=== PATIENT | female | born 1970 | race Caucasian/White ===

== ENCOUNTER 2019-12-05 13:24 | Inpatient (IN) | payer MEDICAID ==
[~2019-12-05] VITALS: Ht 172.7 cm; Wt 56.6 kg
[2019-12-05] VITALS (14 sets, daily range): BP systolic 112–158; BP diastolic 68–85; BMI 18.5
--- NOTE | ~2019-12-05 | OP ---
PATIENT NAME: JEROME REHMAN MEDICAL RECORD: [id number] :70 LOCATION:D.[facility] D.[id number] ADMISSION DATE:12/05/19 SURGEON: ISIDORO RAMOS MD DATE OF OPERATION: 12/06/2019 PREOPERATIVE DIAGNOSIS: Small-bowel obstruction. POSTOPERATIVE DIAGNOSES: 1. Small-bowel obstruction with extensive adhesions in the lower abdomen and pelvis. 2. Appendix that extended inferiorly and was encased in a ball of ovary and fallopian tube. 3. Incarcerated incisional hernia. PROCEDURE: 1. Exploratory laparoscopy with conversion to exploratory laparotomy. 2. Decompression of small bowel. 3. Sharp adhesiolysis (35 minutes). 4. Appendectomy. SURGEON: Isidoro Ramos MD PROCESS ARCHITECT: None. BLOOD LOSS: 100 cc. ANESTHESIA: General. COMPLICATIONS: None. The risks, possible complications, and alternatives to the procedure were explained to the patient. She elects to proceed. Prior to the procedure, the anesthesia staff had placed a central venous line. OPERATIVE COURSE: The patient was conveyed to the operating room electively on 12/06/2019. General anesthesia was induced by the anesthesia staff. The abdomen was sterilely prepped and draped. An incision was accomplished in the left upper quadrant. A Veress needle was inserted through the incision into the peritoneal cavity. A 5-mm trocar was inserted through this incision. Under direct internal vision utilizing television camera, two more trocars were inserted, one in the left groin, one in the left lower quadrant. During insertion of the Veress needle and all trocars, there appeared to have been no injury to the bowels, any intraperitoneal or retroperitoneal structures. There were dense adhesions in the pelvis. I began to take some of these adhesions down and converted to a laparotomy. The laparoscopy did allow me to determine where the problematic area was and it was in the pelvis; therefore, I went through the patient's existing Pfannenstiel incision. An incision was made through the scar. I dissected down through Lyle fascia. The anterior fascia was incised transversely. Subfascial flaps were created in cephalad and caudad direction. I noted that there was a central hernia. The hernia was due to the fact that the rectus muscles either had not been approximated or had with time. This produced a hernia through the muscle, but not through the fascia. There was a good bit of scar tissue within this hernia and in fact I OPERATIVE REPORT [id number] JEROME REHMAN found two tight adhesive bands and both of them were within this hernia defect, which was corrected later in the operation. I exteriorized as much of the bowel as I could. An adhesiolysis was undertaken. This was a sharp adhesiolysis. Most of the adhesions were grade II and grade III adhesions. I mobilized the cecum. The appendix was lengthy and traveled down into the pelvis and I felt a nodular mass on the right side of the pelvis and was able to mobilize this, the tip of the appendix, which was encased with the right fallopian tube and right ovary. This was an indication to remove this appendix. A window was created in the mesoappendix. I stapled across the tip of the cecum with a ROMAN 60 stapler. I then took down the mesoappendix with the Super Jaw EnSeal device. I exteriorized all the small bowel. The small bowel was decompressed through an enterotomy. I then closed the enterotomy with a single firing of the TA 60 stapler. I then imbricated the staple line with 3-0 Vicryl sutures. After the adhesiolysis, there was a thin area in the sigmoid colon, but this was not a full thickness injury. I elected to reinforce this with a firing of TA 60 stapler, which I did tangentially. I tried to create a tongue of omentum that could stick down over the small bowel. I began to take down the omentum starting on right at the transverse colon. She had a very thin omentum, creating a tongue of this proved to be pretty fruitless. I then excised some of the tongue and I had mobilized as it was very thin. I did all of this with the Super Jaw EnSeal device. I irrigated with normal saline and aspirated. Two 19-Lao drains were placed, one through the trocar site in the left upper quadrant, one through the trocar site in the left lower quadrant. The groin trocar site had been utilized in the opening of the Pfannenstiel incision. The drains were sutured to skin with nylon sutures. One drain was placed cephalad under the diaphragm. The other was placed down in the pelvis. I irrigated and aspirated. There was no bleeding. I ran the small bowel 3 times. No evidence of full thickness bowel injury. I ensured that the small bowel was not twisted on its mesentery. I laid this much of the omentum over the small bowel as I could. It was necessary to decompress the small bowel earlier in the operation in order to return it to the peritoneal cavity. In the lower midline, the peritoneum and rectus muscles were approximated with running #1 Vicryl. I reinforced this with a few #1 Vicryls in horizontal mattress fashion. This closed the hernia defect. The anterior fascia was closed with running looped #1 PDS from the right and the left. Lyle fascia was approximated with interrupted 3-0 Vicryls. The subdermis was approximated with interrupted 3-0 Vicryl. The skin was approximated with a running intracuticular 3-0 Vicryl. At the 2 drain sites, skin was closed around, the drain this with interrupted intracuticular 3-0 Vicryls. Benzoin and Steri-Strips were applied. The patient was then extubated and conveyed to the intensive care unit. TRANSINT:[id number] Voice Confirmation ID: [id number] DOCUMENT ID: [id number] 12/08/2019 Edited for jumpbasting armhole baster error, dmm. OPERATIVE REPORT [id number] JEROME REHMAN ROBERT MD CC: RACHEL BAXTER MD [id number] DICTATION DATE: 12/07/19 152 SENIOR CATEGORY MANAGER: 12/07/192112 ADM IN [facility] [address] [place] [address]
[~2019-12-05 13:24] MED LIST: CHANTIX0.5 MG PO; HYDROCODONE-APA1 TAB PO; IBUPROFEN600 MG PO; IBUPROFEN800 MG PO; PERCOCET 10/3251 TA1 PO; PERCOCET 5-3251 TAB PO
[2019-12-05 13:59] LABS: HEMATOCRIT 42.7 % (36.0-48.0); HEMOGLOBIN 14.7 g/dL (12-16); LYMPHOCYTES 9.5 % (15-50); MCH 30.1 pg (26.0-34.0); MCHC 34.4 g/dL (31.0-37.0); MCV 87.5 fL (80.0-100.0); MEAN PLATELET VOLUME 8.6 fL (7.4-10.4); NEUTROPHILS 88.3 % (40-80); RBC 4.88 10x6/uL (4.00-5.40); RDW 14.2 % (11.5-14.5); WBC 11.6 10x3/uL (4.8-10.8)
[2019-12-05 14:13] LABS: PLATELET COUNT 449 10x3/uL (130-400)
--- NOTE | 2019-12-05 14:15 | NUR ---
PT AMBULATORY TO BATHROOM TO SUBMIT URINE SAMPLE
--- NOTE | 2019-12-05 14:20 | NUR ---
PT MEDICATED PER MD ORDER: TORADOL 30MG IVP AND ZOFRAN 8MG IVP. URINE SAMPLE COLLECTED AND SENT TO LAB VIA TUBE SYSTEM.
[2019-12-05 14:45] LABS: BILIRUBIN NEGATIVE (NEGATIVE); GLUCOSE NEGATIVE (NEGATIVE); KETONE MODERATE mg/dL (NEGATIVE); NITRITE NEGATIVE (NEGATIVE); SPECIFIC GRAVITY 1.015 (1.005-1.020); UROBILINOGEN NORMAL (NORMAL)
--- NOTE | 2019-12-05 14:46 | NUR ---
PT REPORT IMPROVEMENT IN ABD PAIN AND NAUSEA. RESTING IN POSITION OF COMFORT AT THIS TIME. CALL LIGHT IN REACH. FAMILY MEMBER AT BEDSIDE. WILL CONTINUE TO MONITOR.
--- NOTE | 2019-12-05 15:18 | NUR ---
PT RESTING IN POSITION OF COMFORT, DENIES NEEDS AT THIS TIME. WILL CONTINUE TO MONITOR.
[2019-12-05 15:35] LABS: CALC OSMOLALITY 273 mosm/kg (275-300); CALCIUM 9.1 mg/dL (8.5-10.1); CARBON DIOXIDE 26.8 mmol/L (21.0-32.0); CHLORIDE - SERUM 103 mmol/L (98-107); CREATININE - SERUM 0.7 mg/dL (0.6-1.3); GLUCOSE 115 mg/dL (74-106); POTASSIUM - SERUM 3.6 mmol/L (3.5-5.1); SODIUM 136 mmol/L (136-145); UREA NITROGEN 14 mg/dL (7-18); eGFR NON AFRICAN AMERICAN > 90 mL/min (90-120)
[2019-12-05 15:44] LABS: ALBUMIN 3.9 g/dL (3.4-5.0); ALKALINE PHOSPHATASE 76 U/L (30-120); ALT (SGPT) 31 U/L (10-68); AMYLASE - SERUM 201 U/L (25-115); BILIRUBIN - TOTAL 0.43 mg/dL (0.2-1.3); LIPASE 66 U/L (73-393); PROTEIN - SERUM 7.8 g/dL (6.4-8.2)
[2019-12-05 15:47] LABS: TROPONIN-I < 0.017 ng/mL (0.000-0.060)
--- NOTE | 2019-12-05 16:10 | NUR ---
PT RESTING IN POSITION OF COMFORT, DENIES NEEDS AT THIS TIME. FAMILY AT BEDSIDE.
--- NOTE | 2019-12-05 16:55 | NUR ---
NG TUBE PLACED AT THIS TIME TO LEFT NARE. PT TOLERATED WELL.
--- NOTE | 2019-12-05 17:30 | NUR ---
AT BEDSIDE. VERBAL ORDER RECEIVED TO ADVANCE NG TUBE APPROX 6 INCHES.
--- NOTE | 2019-12-05 17:40 | NUR ---
NG TUBE ADVANCED PER MD ORDER. POST NG XRAY ORDERED.
--- NOTE | 2019-12-05 18:02 | NUR ---
REPORT TO JENNIFER PRO
--- NOTE | 2019-12-05 19:08 | NUR ---
PT MEDICATED PER MD ORDER: ATIVAN 1MG IVP
--- NOTE | 2019-12-05 19:45 | NUR ---
RECEIVED TO FLOOR, ACCOMPANIED BY ER STAFF. A&O X 4. AMBULATES INDEPENDENTLY. DENIES PAIN. DENIES NAUSEA AT THIS TIME. REPORTS SHE WAS HOOKED TO WALL SUCTION VIA NGT WHILE IN ER. ER CALLED FOR VERIFICATION. CTM.
[2019-12-05 23:10] LABS: INR 0.85 (0.85-1.17); PROTIME 11.6 SECONDS (11.6-15.0)
[2019-12-05 23:11] LABS: APTT 27.4 SECONDS (22.8-39.4)
[2019-12-06] VITALS (14 sets, daily range): BP systolic 93–167; BP diastolic 58–84; Ht 172.7 cm; Wt 56.6 kg
--- NOTE | 2019-12-06 06:00 | NUR ---
UP TO RESTROOM. AMBULATES INDEPENDENTLY. N/V EPISODE, 100ML CLEAR/GREENISH EMESIS. PAIN 03/06.
[2019-12-06 08:28] LABS: HEMATOCRIT 41.4 % (36.0-48.0); HEMOGLOBIN 14.2 g/dL (12-16); LYMPHOCYTES 10.6 % (15-50); MCH 30.3 pg (26.0-34.0); MCHC 34.3 g/dL (31.0-37.0); MCV 88.3 fL (80.0-100.0); MEAN PLATELET VOLUME 9.1 fL (7.4-10.4); NEUTROPHILS 85.2 % (40-80); PLATELET COUNT 432 10x3/uL (130-400); RBC 4.69 10x6/uL (4.00-5.40); RDW 14.4 % (11.5-14.5); WBC 11.8 10x3/uL (4.8-10.8)
[2019-12-06 08:44] LABS: ALBUMIN 3.4 g/dL (3.4-5.0); ALKALINE PHOSPHATASE 67 U/L (30-120); BILIRUBIN - TOTAL 0.38 mg/dL (0.2-1.3); CALC OSMOLALITY 281 mosm/kg (275-300); CALCIUM 8.9 mg/dL (8.5-10.1); CARBON DIOXIDE 23.8 mmol/L (21.0-32.0); CHLORIDE - SERUM 108 mmol/L (98-107); CREATININE - SERUM 0.6 mg/dL (0.6-1.3); GLUCOSE 104 mg/dL (74-106); LIPASE 66 U/L (73-393); MAGNESIUM - SERUM 2.1 mg/dL (1.8-2.4); POTASSIUM - SERUM 3.8 mmol/L (3.5-5.1); PROTEIN - SERUM 7.5 g/dL (6.4-8.2); SODIUM 141 mmol/L (136-145); UREA NITROGEN 14 mg/dL (7-18); eGFR NON AFRICAN AMERICAN > 90 mL/min (90-120)
[2019-12-06 08:45] LABS: ALT (SGPT) 23 U/L (10-68); AMYLASE - SERUM 146 U/L (25-115)
--- NOTE | 2019-12-06 11:28 | NUR ---
PT ALERT X 4. NG TUBE SET TO LIWS. BREATH SOUNDS CLEAR BILAT. IV TO RIGHT FOREARM, PATENT, DRESSING CDI. PT REPORTING PAIN OF 8/10. EKG AND HIBICLENSE DONE. BED LOW, CALL LIGHT IN REACH. NO OTHER NEEDS AT THIS TIME.
--- NOTE | 2019-12-06 11:30 | NUR ---
1120 PATIENT BROUGHT OVER TO PACU DR CASTLE PLACED CVL, TWORLEY.
--- NOTE | 2019-12-06 11:59 | NUR ---
CVL PLACED BY DR CASTLE, THEN PATIENT TO HAVE EXPLORATORY LAPAROTOMY BY DR RAMOS, PATIENT HELD IN PACU AND MONITORED AFTER CVL PLACEMENT TILL SURGERY, ALLEN.
--- NOTE | 2019-12-06 13:17 | NUR ---
PATIENT IN PACU HOLDING AREA, AWAITING SURGERY B/P 161/67 O2 AT 97% ON ROOM AIR AND HEART RATE 86, TWORLEY.
--- NOTE | 2019-12-06 17:40 | NUR ---
ARRIVED TO UNIT AT THIS TIME FROM OR WITH PACU NURSE AT BEDSIDE. PT CONFUSED AT THIS TIME. REORIENTATION PROVIDED. NGT TO LOW INT SUCTIONING. INCISION TO PTS PREVIOUS SITE WITH JOSE DRAINS X 2. HUERTA. VSS. PACU NURSE AT BEDSIDE RECOVERING PT. WILL CONTINUE PLAN OF CARE.
--- NOTE | 2019-12-06 18:24 | NUR ---
PACU NURSE HAS GIVEN BEDSIDE REPORT TO THIS NURSE. UPDATES PROVIDED. PT SLIGHTLY DROWSY, AWAKENS EASILY. STILL CONFUSED TO SITUATION AND LOCATION. REORIENTATION PROVIDED. VSS. WILL CONTINUE PLAN OF CARE.
--- NOTE | 2019-12-06 18:41 | NUR ---
PER DR RAMOS, WATCH PTS URINE OUTPUT FOR 30ML URINE OUTPUT/HR.
--- NOTE | 2019-12-06 19:11 | NUR ---
BEDSIDE SHIFT REPORT COMPLETED, SHIFT ASSESSMENT COMPLETED AT THIS TIME. PT LETHARGIC ROUSES TO VOICE. EXPRESSING 10/10 ON PAIN SCALE, ABDOMEN, SHARP. PAIN MEDICATION ADMINISTERED PER ORDERS WITH 2 NURSE BEDSIDE VERIFICATION. PT EDUCATION PROVIDED AT THIS TIME REGARDING DIGITAL MARKETING COORDINATOR PAIN CONTROL DEVICE. JOSE X2 LEFT LOWER ABDOMEN. COMPRESSED, BLOODY DRAINAGE. DRESSING CDI. PATIENT AFEBRILE, LUNG SOUNDS CTA - BS HYPO X4 - VSS WILL CONTINUE TO CLOSELY MONITOR.
--- NOTE | 2019-12-06 19:22 | NUR ---
DAUGHTER CALLED IN TO REQUEST PATIENT STATUS UPDATE. PASSWORD RECEIVED FROM DAUGHTER. UPDATE GIVEN, ALL QUESTIONS ANSWERED CPOC
--- NOTE | 2019-12-06 23:02 | NUR ---
REASSESSMENT COMPLETED AT THIS TIME, TACHYCARDIA AND HYPOTENSION NOTED, UOP TRENDING >30 AT THIS TIME. AFEBRILE, PAIN MODERATELY CONTROLLED WITH PATIENT EXPRESSING 6-8 ON PAIN SCALE. JOSE OUTPUT AT A MINIMUM - WILL CONTINUE TO CLOSELY MONITOR
[2019-12-07] VITALS (23 sets, daily range): BP systolic 91–153; BP diastolic 55–94
--- NOTE | 2019-12-07 01:30 | NUR ---
PATIENT RESTING COMFORTABLY, NO ACUTE CHANGES AT THIS TIME. WILL CONTINUE TO MONITOR
--- NOTE | 2019-12-07 03:32 | NUR ---
REASSESSMENT COMPLETED, SCANT AMOUNT OF BLOOD NOTED ON JOSE #1 DRESSING, BULBS COMPRESSED, MINIMAL OUTPUT. UOP COLLECTED AND CHARTED, PATIENT REPOSITIONED FOR COMFORT. PT ASKED WHEN SHE WOULD HAVE SURGERY. I INFORMED HER SHE ALREADY HAD SURGERY. PT STATED SHE HAD NO RECOLLECTION OF SURGERY AND ASKED IF EVERYTHING WAS OK AND IF SHE HAD ANY CALLS. UPDATE PATIENT AND ANSWERED ALL QUESTIONS. PT ORIENTED X4 PT STATES HER PAIN LEVEL IS DOWN TO 5 ON A 1-10 PAIN SCALE. LABS COLLECTED FROM CENTRAL LINE PER PROTOCOL AND DELIVERED TO LAB. PT REMAINS AFEBRILE, WITH SINUS TACHYCARDIA. WILL CONTINUE TO CLOSELY MONITOR SEE FLOWSHEET FOR FULL ASSESSMENT
[2019-12-07 03:40] LABS: BASOPHILS 0.2 % (0-2); EOSINOPHILS 0 % (0-7); HEMATOCRIT 36.2 % (36.0-48.0); HEMOGLOBIN 12.1 g/dL (12-16); IMMATURE GRANULOCYTES 0.3 % (0-5); LYMPHOCYTES 7.3 % (15-50); MCH 30.4 pg (26.0-34.0); MCHC 33.4 g/dL (31.0-37.0); MEAN PLATELET VOLUME 8.8 fL (7.4-10.4); MONOCYTES 6.2 % (2-11); RBC 3.98 10x6/uL (4.00-5.40); RDW 14.2 % (11.5-14.5)
[2019-12-07 03:44] LABS: PLATELET COUNT 324 10x3/uL (130-400)
[2019-12-07 03:52] LABS: ANION GAP 10.7 mmol/L (8-16); BILIRUBIN - TOTAL 0.62 mg/dL (0.2-1.3); CALCIUM 7.5 mg/dL (8.5-10.1); CARBON DIOXIDE 23.2 mmol/L (21.0-32.0); MAGNESIUM - SERUM 1.7 mg/dL (1.8-2.4); POTASSIUM - SERUM 3.9 mmol/L (3.5-5.1)
[2019-12-07 03:53] LABS: ALBUMIN 2.1 g/dL (3.4-5.0); CREATININE - SERUM 0.9 mg/dL (0.6-1.3); PROTEIN - SERUM 5.2 g/dL (6.4-8.2)
--- NOTE | 2019-12-07 07:49 | NUR ---
LYING IN BED RESTING AT THIS TIME. VSS. PT DENIES ANY CURRENT NEEDS. STATES PAIN IS MUCH MORE WELL MANAGED THAN LAST NIGHT. SHE STATES SHE WISHES TO SLEEP. CALL LIGHT IN REACH. NOTED JOSE DRAIN #1 HAVING SCANT DRAINAGE AROUND JOSE INSERTION SITE, DRESSINGS CHANGED AROUND SITE. VSS. CALL LIGHT AND PERSONAL ITEMS IN REACH. WILL CONTINUE PLAN OF CARE.
--- NOTE | 2019-12-07 09:18 | NUR ---
PER DR MCNEILL, IF OKAY WITH DR RICHARD MCGUIRE TO TRANSFER TO FLOOR.
--- NOTE | 2019-12-07 10:08 | NUR ---
NO ACUTE DISTRESS NOTED. NO CHANGE. VSS. WILL CONTINUE PLAN OF CARE.
--- NOTE | 2019-12-07 12:06 | NUR ---
VSS. NO ACUTE DISTRESS NOTED. CALL LIGHT AND PERSONAL ITEMS IN REACH. WILL CONTINUE PLAN OF CARE.
--- NOTE | 2019-12-07 14:25 | NUR ---
PER DR RAMOS, OKAY FOR PT TO WALK AND SIT UP IN CHAIR TOLERATES.
--- NOTE | 2019-12-07 15:04 | NUR ---
JOSE 1 AND 2 DRAINED, SEE I&O FLOWSHEET.
--- NOTE | 2019-12-07 16:10 | NUR ---
PT NOTED CONFUSED, PULLED OUT NGT AND CVL DRESSING AND MONITORING EQUIPMENT. PT WAS THEN ATTEMPTING TO PULL OUT CVL. REORIENTATION ATTEMPTED TO BE PROVIDED, UNSUCCESSFUL. PT STATED "IT WAS SUPPOSED TO COME OUT, I WANT TO PLAY PLEASE LET ME PLAY, I CAN SHOW YOU THAT I CAN PLAY." BILATERAL SOFT WRIST RESTRAINTS PLACED. NGT 16F PLACED, PLACEMENT VERIFIED VIA AUSCULTATION AND ASPIRATION. CVL DRESSING PLACED. VSS. WILL CONTINUE PLAN OF CARE. WILL PAGE DR RAMOS OF THIS.
--- NOTE | 2019-12-07 16:29 | NUR ---
\DR RAMOS UPDATED ON PT CONFUSION INCLUDING INCREASED HEART RATE TO 140S SINUS. ORDER RECIEVED FOR ONE TIME DOSE LOPRESOR. GIRISH ADMIN.
--- NOTE | 2019-12-07 18:08 | NUR ---
PT NOTED STILL CONFUSED STATING "I SLICED OPEN THE CAN, HELP ME OPEN IT, YOU DON'T BELIEVE ME?" REORIENTATION PROVIDED. NO ACUTE DISTRESS NOTED. WILL CONTINUE PLAN OF CARE.
--- NOTE | 2019-12-07 19:04 | NUR ---
BEDSIDE SHIFT REPORT RECEIVED. PT LYING IN BED, BILAT WRIST RESTRAINTS NOTED AT THIS TIME. TACHYCARDIA NOTED, RADIOISOTOPE TECHNICIAN OFF AT THIS TIME DUE TO MENTAL STATUS REPORTED BY OFF GOING NURSE. VSS WILL CONTINUE TO MONITOR
--- NOTE | 2019-12-07 19:45 | NUR ---
PT IS AWAKE ALERT AND ORIENTED, SHE REMEMBERS THIS NURSE FROM PREVIOUS SHIFT, SHE CAN RECALL CONVERSATIONS WE HAVE HAD SHE UNDERSTANDS HER SITUATION, SHE IS HAVING SOME ANXIETY. BILAT WRIST RESTRAINTS DCD AT THIS TIME. PT UNDERSTANDS THE NECESSITY FOR MEDICAL EQUIPMENT.
--- NOTE | 2019-12-07 21:00 | NUR ---
PT FOUND TEARFUL AND AFRAID, SHE HAS PULLED THE NG TUBE OUT. SHE IS ON THE PHONE WITH HER DAUGHTER STATING THAT WE HAVE KIDNAPPED HER AND TIED HER DOWN. PATIENT IS UNRESTRAINED AT THIS TIME. I HAVE SPOKEN WITH DAUGHTER ON THE PHONE PRIOR TO THIS MOMENT AND ALREADY EXPLAINED THE NEED FOR MEDICAL RESTRAINTS FOR SAFETY EARLIER IN THE DAY. REORIENTED PATIENT TO TIME AND SITUATION, INSTUCTED THROUGH DEEP BREATHING EXERCISES. REORIENTATION SUCCESSFUL, EXPLAINED THE NEED FOR MEDICAL RESTRAINTS TO PROTECT PATIENT AND MEDICAL EQUIPMENT. SHE STATED SHE WOULD IF WE TIED HER DOWN AGAIN. NG TUBE RE INSERTED AIR BOLUS AUDIBLE LUQ - XRAY CHECKED FOR CONFIRMATION. CONNECTED TO LIS. SPOKE WITH DR RAMOS AT BEDSIDE. NEW ORDERS RECEIVED - NO RESTRAINTS ON THE PATIENT AT THIS TIME
--- NOTE | 2019-12-07 23:20 | NUR ---
REASSESSMENT COMPLETED. PT ANXIOUS AND FEARFUL. REORIENTED TO SITUATION. VSS WITH NOTED TACHYCARDIA, WILL CONTINUE TO MONITOR
[2019-12-08] VITALS (23 sets, daily range): BP systolic 119–159; BP diastolic 69–96
--- NOTE | 2019-12-08 | NUR ---
PT REQUESTED PRN MEDICATION, SEE JUL FOR ADMINISTRATION
--- NOTE | 2019-12-08 00:59 | NUR ---
PT REQUESTING PRN MEDICATION AT THIS TIME, WILL ADMINISTER ORDERED SEE MAR
[2019-12-08 04:50] LABS: HEMATOCRIT 40.2 % (36.0-48.0); HEMOGLOBIN 13.7 g/dL (12-16); MCH 30.2 pg (26.0-34.0); MCHC 34.1 g/dL (31.0-37.0); MEAN PLATELET VOLUME 8.7 fL (7.4-10.4); NEUTROPHILS 82.2 % (40-80); RBC 4.53 10x6/uL (4.00-5.40); RDW 14.5 % (11.5-14.5); WBC 9.1 10x3/uL (4.8-10.8)
[2019-12-08 04:58] LABS: MCV 88.7 fL (80.0-100.0); PLATELET COUNT 248 10x3/uL (130-400)
[2019-12-08 05:04] LABS: ALBUMIN 1.9 g/dL (3.4-5.0); ALKALINE PHOSPHATASE 53 U/L (30-120); ALT (SGPT) 13 U/L (10-68); BILIRUBIN - TOTAL 0.51 mg/dL (0.2-1.3); CALC OSMOLALITY 293 mosm/kg (275-300); CALCIUM 8.2 mg/dL (8.5-10.1); CARBON DIOXIDE 22.8 mmol/L (21.0-32.0); CHLORIDE - SERUM 115 mmol/L (98-107); CREATININE - SERUM 0.7 mg/dL (0.6-1.3); GLUCOSE 117 mg/dL (74-106); PROTEIN - SERUM 5.6 g/dL (6.4-8.2); SODIUM 147 mmol/L (136-145); UREA NITROGEN 15 mg/dL (7-18); eGFR NON AFRICAN AMERICAN > 90 mL/min (90-120)
[2019-12-08 05:05] LABS: AMYLASE - SERUM 52 U/L (25-115); LIPASE 29 U/L (73-393); MAGNESIUM - SERUM 2.3 mg/dL (1.8-2.4); POTASSIUM - SERUM 3.3 mmol/L (3.5-5.1)
--- NOTE | 2019-12-08 09:34 | NUR ---
Nutrition consult: Received consult fromdenise Espinal to start TPN. Chart reviewed Labs reviewed Ordered TPN @ 40 ml/hr RDN following.
--- NOTE | 2019-12-08 14:27 | NUR ---
0700 BEDSIDE REPORT RECEIVED ASSESSMENT COMPLETE NGT TUBE IN PLSCE TO LEFT NARE ABDOMIN TENDER TO TOUCH AND MOVEMENT INCISION SITES CDI
--- NOTE | 2019-12-08 14:31 | NUR ---
0900 RESTING QUIETLY WITH EYES CLOSED
--- NOTE | 2019-12-08 14:32 | NUR ---
0920 C/O PAIN 12/04 DILAUDID 1MG IV GIVEN
--- NOTE | 2019-12-08 14:33 | NUR ---
1100 RESTING QUIETLY AWAKENS WHEN DR MANE IS ROUNDING ANSWERS QUESTIONS
--- NOTE | 2019-12-08 14:34 | NUR ---
1400 C/O ABDOMINAL PAIN 02/04 DILALUDID 1MG IV GIVEN LEFT SUB CLAVIAN DSG CDI
--- NOTE | 2019-12-08 14:34 | NUR ---
1300 VISITOR AT BEDSIDE VOICES NO COMPLAINTS
--- NOTE | 2019-12-08 19:10 | NUR ---
BEDSIDE SHIFT REPORT COMPLETED
--- NOTE | 2019-12-08 19:38 | NUR ---
SHIFT ASSESSMENT COMPLETED, SOME BRIGHT RED BLOOD NOTED IN NG TUBE AT THIS TIME. FULL VAC ON AT THIS TIME, TURNED DOWN TO LOW INTERMITTENT SUCTION. PT EXPERIENCING SOME NAUSEA, ASSITED TO SIT UP IN BED. PLACEMENT CHECK ON NG TUBE. AIR BOLUS AUDIBLE LUQ. WILL CONTINUE TO CLOSELY MONITOR FOR BLOOD VSS PT STATES PAIN IS AT A MINIMUM STATING 5 OUT OF 10 ON 1-10 PAIN SCALE. SEE FLOWSHEET FOR FULL ASSESSMENT
--- NOTE | 2019-12-08 19:41 | NUR ---
CBS 142 AFTER STARTING TPN
--- NOTE | 2019-12-08 20:50 | NUR ---
PT REQUESTED PRN PAIN MEDICATION AT THIS TIME SEE MAR FOR ADMINISTRATION
--- NOTE | 2019-12-08 23:30 | NUR ---
REASSESSMENT COMPLETED SEE FLOWSHEET
[2019-12-09] VITALS (13 sets, daily range): BP systolic 125–157; BP diastolic 81–96
--- NOTE | 2019-12-09 01:43 | NUR ---
PT RESTING COMFORTABLY, NO ACUTE SIGNS OF DISTRESS, CPOC
--- NOTE | 2019-12-09 04:15 | NUR ---
PATIENT REQUESTING PRN PAIN MEDICATION AT THIS TIME. MAROON LIQUID NOTED IN NG CANISTER. PLACEMENT CHECK AIR BOLUS AUDIBLE AT THIS TIME. CHG BATH COMPLETED PATIENT ABLE TO ROLL SIDE TO SIDE. TOLERATED WELL WITH SOME FATIGUE. VSS CPOC
[2019-12-09 05:04] LABS: LYMPHOCYTES 17.5 % (15-50); MCH 30.2 pg (26.0-34.0); MCHC 33.8 g/dL (31.0-37.0); MCV 89.2 fL (80.0-100.0); MEAN PLATELET VOLUME 8.9 fL (7.4-10.4); NEUTROPHILS 72.3 % (40-80); RDW 13.9 % (11.5-14.5)
[2019-12-09 05:25] LABS: HEMOGLOBIN 9.8 g/dL (12-16); PLATELET COUNT 338 10x3/uL (130-400); RBC 3.25 10x6/uL (4.00-5.40); WBC 6.6 10x3/uL (4.8-10.8)
[2019-12-09 05:28] LABS: ALBUMIN 1.8 g/dL (3.4-5.0); ALKALINE PHOSPHATASE 53 U/L (30-120); ALT (SGPT) 14 U/L (10-68); BILIRUBIN - TOTAL 0.56 mg/dL (0.2-1.3); CALC OSMOLALITY 290 mosm/kg (275-300); CALCIUM 8.2 mg/dL (8.5-10.1); CHLORIDE - SERUM 115 mmol/L (98-107); CREATININE - SERUM 0.6 mg/dL (0.6-1.3); GLUCOSE 140 mg/dL (74-106); MAGNESIUM - SERUM 2.2 mg/dL (1.8-2.4); POTASSIUM - SERUM 3.1 mmol/L (3.5-5.1); PROTEIN - SERUM 5.9 g/dL (6.4-8.2); SODIUM 145 mmol/L (136-145); UREA NITROGEN 12 mg/dL (7-18); eGFR NON AFRICAN AMERICAN > 90 mL/min (90-120)
[2019-12-09 05:31] LABS: AMYLASE - SERUM 95 U/L (25-115); LIPASE 144 U/L (73-393)
[2019-12-09 05:32] LABS: PHOSPHOROUS 0.9 mg/dL (2.5-4.9)
--- NOTE | 2019-12-09 05:41 | NUR ---
PAGED SURGERY REGARDING NG TUBE CONCERNS, SERVICE NOTIFIED THIS NURSE THAT DR RAMOS IS BUSINESS MGR AND WILL BE NOTIFIED.
--- NOTE | 2019-12-09 06:17 | NUR ---
DR ARAIZA RETURNED PAGE AT THIS TIME, NO NEW ORDERS
--- NOTE | 2019-12-09 08:15 | NUR ---
Nutrition follow-up: Chart reviewed Labs: PO4 0.9, Cl 115, Na 145, K 3.1; PO4 to be replaced per electolyte protocol TPN electolytes adjusted TPN infusing @ 40 ml/hr RDN following.
--- NOTE | 2019-12-09 09:43 | NUR ---
0700 BEDSIDE REPORT RECCEIVED FROM OUTGOING RN SITTING IN BED AWAKE ABDOMIN TENDER TO TOUCH AND MOVEMENT ANSWERS QUESTIONS APPROPRIATELY
--- NOTE | 2019-12-09 14:42 | NUR ---
0800 RADIOLOGIST CALLED AND ASKED THAT WE ADVANCE NGT 5 CM CCASSIE DID THIS ORDERED REPEAT ABD XR. NGT WAS IN PLACE
--- NOTE | 2019-12-09 14:44 | NUR ---
1000 DR ARAIZA AT BEDSIDE ACCESSING NGT FUNCTION
--- NOTE | 2019-12-09 18:13 | NUR ---
1100 REMAINS NPO WITH NGT IN PLACE
--- NOTE | 2019-12-09 18:14 | NUR ---
1300 REMAINS UP IN RECLINER CHAIR OSMIN WELL
--- NOTE | 2019-12-09 18:15 | NUR ---
[address]ED BACK TO BED DR ARAIZA CAME BY AND WAS UPDATED ON HER PROGRESS WITH AMBULATION
--- NOTE | 2019-12-09 18:16 | NUR ---
1700 VOIDED 500 ML CLEAR URINE
--- NOTE | 2019-12-09 18:46 | NUR ---
CALLED PHARMACIST CHOLO R/Neena LOW PHOSPHORUS 0.9 SHE STATED THAT SHE COVERED THIS LOW LEVEL WHILE MAKING THE TPN, THAT THERE IS NO NWEED TO COVER THE PHOS TODAY SERUM PO4 TO BE DRAWN IN AM
--- NOTE | 2019-12-09 19:34 | NUR ---
ASSESSMENT PER FLOW SHEET, VS OBTAINED, LEFT SUBCLAVIAN INTACT WITH NO REDNESS OR EDEMA INFUSING VIA PUMP CLINIMIX AT 40ML/HR AND NS AT 30ML/HR, NG TUBE OFF SUCTION AT THIS TIME, LOW TRANSVERSE INC WITH STERI STRIPS CDI WITH NO DRAINAGE NOTED, PT DENIES FLATUS, NO BM AND VOIDING WITH NO DIFFICULTY, PT USING BEDSIDE COMMODE, PT RATES ABD PAIN 5/10, INFORMED PT THAT I WILL ADM PAIN MED WHEN DUE, PT VERBALIZES UNDERSTANDING, SCD'S NOTED TO BE OFF, SCD'S APPLIED AND WORKING PROPERLY, DENIES NEEDS AT THIS TIME, POC DISCUSSED WITH PT REGARDING TRANSFER TO FLOOR, PT STATES "I'LL BE READY BECAUSE IT'S A LITTLE NOISY HERE", PT DENIES FURTHER NEEDS, BED IN LOW POSITION, SIDE RAILS X 2, CALL LIGHT IN REACH
--- NOTE | 2019-12-09 20:55 | NUR ---
IV BEEPING, NS FINISHED INFUSING, DISCONTINUED, PORT FLUSHED WITH NS WITH NO DIFFICULTY, ADM TORADOL SIVP PER MD ORDERS, SEE EMAR, PORT FLUSHED, INFORMED PT THAT I NEED HER TO SIGN CONSENT FOR BLOOD, PT VERBALIZES UNDERSTANDING
--- NOTE | 2019-12-09 21:05 | NUR ---
BLOOD TRANSFUSION CONSENT SIGNED AND WITNESSED
--- NOTE | 2019-12-09 22:15 | NUR ---
PT C/O PAIN, PORT FLUSHED, ADM DILAUDID DILUTED IN 5MLS OF NS SIVP PER MD ORDERS, SEE EMAR, PT INFORMED OF TRANSFER, PT VERBALIZES UNDERSTANDING AND REQUESTS TO BE TRANSFERRED VIA BED
--- NOTE | 2019-12-09 22:20 | NUR ---
REPORT CALLED TO RAFAEL MCGRAW ON MED SURGE
--- NOTE | 2019-12-09 22:27 | NUR ---
PT TRANSFERRED VIA BED PER JENNIFER HENRY TO ROOM 1929
--- NOTE | 2019-12-09 22:30 | NUR ---
RECEIVED TO FLOOR. A&O X 4. AMBULATES AD ASHWINI. BSC SET IN ROOM FOR CONVENIENCE. DENIES PAIIN/NEEDS AT THIS TIME. NGT HOOKED TO SARAH. CTM.
[2019-12-10 04:00] VITALS: BP 153/89
--- NOTE | 2019-12-10 04:46 | NUR ---
I have reviewed this patient and I concur with the Shift Assessment completed by the Licensed Practical Nurse today this shift.
[2019-12-10 05:57] LABS: ALBUMIN 1.9 g/dL (3.4-5.0); ALKALINE PHOSPHATASE 59 U/L (30-120); ALT (SGPT) 14 U/L (10-68); BILIRUBIN - TOTAL 0.41 mg/dL (0.2-1.3); CALC OSMOLALITY 290 mosm/kg (275-300); CALCIUM 8.5 mg/dL (8.5-10.1); CHLORIDE - SERUM 115 mmol/L (98-107); CREATININE - SERUM 0.5 mg/dL (0.6-1.3); GLUCOSE 104 mg/dL (74-106); MAGNESIUM - SERUM 2.1 mg/dL (1.8-2.4); POTASSIUM - SERUM 3.2 mmol/L (3.5-5.1); PROTEIN - SERUM 6.1 g/dL (6.4-8.2); SODIUM 146 mmol/L (136-145); UREA NITROGEN 13 mg/dL (7-18); eGFR NON AFRICAN AMERICAN > 90 mL/min (90-120)
[2019-12-10 06:22] LABS: AMYLASE - SERUM 164 U/L (25-115); LIPASE 456 U/L (73-393); PHOSPHOROUS 1.7 mg/dL (2.5-4.9)
[2019-12-10 07:31] LABS: HEMATOCRIT 28.6 % (36.0-48.0); HEMOGLOBIN 9.9 g/dL (12-16); LYMPHOCYTES 16.3 % (15-50); MCH 30.9 pg (26.0-34.0); MCHC 34.6 g/dL (31.0-37.0); MCV 89.4 fL (80.0-100.0); MEAN PLATELET VOLUME 9.2 fL (7.4-10.4); NEUTROPHILS 73.3 % (40-80); PLATELET COUNT 382 10x3/uL (130-400); RDW 14.2 % (11.5-14.5); WBC 7.4 10x3/uL (4.8-10.8)
--- NOTE | 2019-12-10 07:50 | NUR ---
Nutrition follow-up: Chart reviewed Labs: K, PO4 remain low Spoke with RN re: PO4, K protocol RN aware and will replace today TPN @ 40 ml/hr; adjusted electolytes 12/08; will wait until tomorrow and adjust again if needed. RDN following.
[2019-12-10 09:07] VITALS: BP 150/89
[2019-12-10 12:50] VITALS: BP 153/95
[2019-12-10 16:45] VITALS: BP 162/81
--- NOTE | 2019-12-10 19:45 | NUR ---
PT SITTING IN BED WITHOUT DISTRESS, AOX4. DENIES NEEDS AT THIS TIME. CL IN REACH, WILL CTM
[2019-12-10 20:00] VITALS: BP 136/87
[2019-12-11] VITALS: BP 141/86
[2019-12-11 04:00] VITALS: BP 132/79
--- NOTE | 2019-12-11 07:32 | NUR ---
PT IS RESTING IN BED WITH EYES CLOSED. RESPIRATIONS ARE EVEN AND UNLABORED. PT IS EASILY AROUSED WITH VERBAL STIMULATION. NG TUBE NOTED AND CLAMPED. PT DENIES PRESENCE OF N/V AT THIS TIME. LEFT SUBCLAVIAN IN PLACE. DRESSING IS CDI. BIOPATCH IN PLACE. JOSE DRAIN TO LLQ X 2. DRESSING CDI. BULBS ARE COMPRESSED. BED IS IN THE LOWEST POSITION. CALL LIGHT AND BEDSIDE TABLE ARE WITHIN REACH. SIDE RAILS X 2. PT DENIES FURTHER NEEDS. WILL CONT TO MONITOR.
--- NOTE | 2019-12-11 08:03 | NUR ---
Nutrition follow-up: Chart reviewed PO4 now high, K low after replacement Na slightly elevated TPN formula adjusted RDN following.
--- NOTE | 2019-12-11 08:40 | NUR ---
NG TUBE DC PER ORDER. PT TOLERATED WELL. CLEAR LIQUID DIET AT BEDSIDE. BED IS IN THE LOWEST POSITION. CALL LIGHT AND BEDSIDE TABLE ARE WITHIN REACH. SIDE RAISLX 2. PT DENIES FURTHER NEEDS. WILL CONT TO MONITOR.
[2019-12-11 10:31] VITALS: BP 127/81
[2019-12-11 13:20] VITALS: BP 118/76
--- NOTE | 2019-12-11 15:44 | NUR ---
JOSE DRAIN #1 AND #2 DC PER ORDER. PT TOLERATED WELL. 4X4 GUAZE DRESSING APPLIED. BED IS IN THE LOWEST POSITION. CALL LIGHT AND BEDSIDE TABLE ARE WITHIN REACH. SIDE RAILS X 2. PT DENIES FURTHER NEEDS. WILL CONT TO MONITOR.
[2019-12-11 17:38] VITALS: BP 120/73
[2019-12-11 20:00] VITALS: BP 112/67
--- NOTE | 2019-12-11 20:00 | NUR ---
PT SITTING UP IN BED WITHOUT DISTRESS, AOX4. LEFT SUBCL INFUSING TPN @ 40. LOWER ABD INCISION CDI. LEFT ABD DRESSINGS CDI. PT JUST RECIEVED PAIN MED. SCDS ON BILAT. PROVIDED ICE WATER. DENIES OTHER NEEDS. CL IN REACH, WILL CTM
[2019-12-12 04:00] VITALS: BP 109/70
[2019-12-12 06:39] LABS: CALC OSMOLALITY 283 mosm/kg (275-300); CALCIUM 8.7 mg/dL (8.5-10.1); CARBON DIOXIDE 26.4 mmol/L (21.0-32.0); CHLORIDE - SERUM 107 mmol/L (98-107); CREATININE - SERUM 0.6 mg/dL (0.6-1.3); GLUCOSE 130 mg/dL (74-106); MAGNESIUM - SERUM 2.8 mg/dL (1.8-2.4); POTASSIUM - SERUM 3.4 mmol/L (3.5-5.1); SODIUM 141 mmol/L (136-145); UREA NITROGEN 16 mg/dL (7-18); eGFR NON AFRICAN AMERICAN > 90 mL/min (90-120)
[2019-12-12 06:40] LABS: PHOSPHOROUS 4.2 mg/dL (2.5-4.9)
[2019-12-12 06:53] LABS: HEMATOCRIT 30.4 % (36.0-48.0); HEMOGLOBIN 10.5 g/dL (12-16); LYMPHOCYTES 14.5 % (15-50); MCH 30.8 pg (26.0-34.0); MCHC 34.5 g/dL (31.0-37.0); MCV 89.1 fL (80.0-100.0); MEAN PLATELET VOLUME 8.8 fL (7.4-10.4); NEUTROPHILS 73.9 % (40-80); PLATELET COUNT 455 10x3/uL (130-400); RBC 3.41 10x6/uL (4.00-5.40); WBC 11.7 10x3/uL (4.8-10.8)
--- NOTE | 2019-12-12 07:29 | NUR ---
Nutrition follow-up: Chart reviewed Labs: K still low at 3.4; recommend K rider Mg elevated @ 2.8 PO4 WNL Will continue current TPN formula today and make changes 12/12 if needed. RDN following.
--- NOTE | 2019-12-12 07:45 | NUR ---
ALERT AND ORIENTED. LUNGS CLEAR BILATERALLY. HEART SOUNDS S1 AND S2 HEARD IN ALL BURDEN. BOWEL SOUNDS ACTIVE X 4. LEFT SUBCLAVIAN IV PATENT WITHOUT REDNESS. DENIES NEEDS. BED LOW. CALL GAMA AND PERSONAL ITEMS IN REACH. WILL CONTINUE TO MONITOR.
[2019-12-12] MEDS ORDERED: HYDROCODON-ACE1 EAC7 PO (09:00)
[2019-12-12] MEDS ORDERED: MIRALAX17 GM PO ×2 (09:00→12:25)
[2019-12-12 09:47] VITALS: BP 130/79
[2019-12-12] MEDS ORDERED: VISTARIL25 MG PO (12:25)
[2019-12-12] MEDS ORDERED: ZOFRAN4 MG PO (12:25)
--- NOTE | 2019-12-12 12:53 | NUR ---
Nutrition follow-up: Pt possible discharge today TPN rate decreased to 20 ml/hr until bag empty or pt discharges Paged Dr. Jenkins; however, did not receive call-back. Addressed TPN with RNNilsa who will speak with Dr. Jenkins re: TPN RDN following.
[2019-12-12 13:13] VITALS: BP 113/74
--- NOTE | 2019-12-12 13:46 | NUR ---
LEFT SUBCLAVIAN CENTRAL LINE REMOVED WITH TIP INTACT. PRESSURE APPLIED FOR FIVE MINUTES. PATIENT INSTRUCTED TO CONTINUE TO LIE FLAT FOR 15 MINUTES.
[2019-12-12] MEDS ORDERED: NICODERM CQ1 EAC1 TOPICAL (14:04)
--- NOTE | 2019-12-12 14:44 | NUR ---
DISCHARGE EDUCATION PROVIDED BOTH WRITTEN AND VERBAL. VERBALIZED UNDERSTANDING. DENIES FURTHER QUESTIONS. PATIENT DC HOME WITH ALL BELONGINGS.
--- NOTE | 2019-12-12 15:33 | MORECARE ---
CASE MANAGEMENT DISCHARGE SUMMARY PATIENT: JEROME REHMAN UNIT: [id number] ADM DATE: 12/05/19 AGE: 49 : 70 SEX: F ROOM/BED: D.2220 AUTHOR: MAGED ROSA PHYSICIAN: REFERRING PHYSICIAN: RACHEL BAXTER MD DATE OF SERVICE: 12/12/19 Discharge Plan Patient Name: JREOME REHMAN Facility: [facility]:[place] : 1970 Planned Disposition: Home or Self Care Anticipated Discharge Date: Discharge Date: 12/12/2019 Expected LOS: Initial Reviewer: [email or web address] Initial Review Date: 12/05/2019 Generated: 12/12/19 4:32 pm DCP- Discharge Planning Updated by [email or web address]: Linn Colon on 12/12/19 2:[address] PATIENT DISCHARGED HOME, SHE HAS FAMILY WHO WILL HELP HER AND PER HER NURSE WAS INDEPENDENT WITH HER CARE Patient Name: JEROME REHMAN Page [phone] at 1533 All edits/amendments must be made on the electronic document DICTATION DATE: 12/12/191531 INSTRUCTOR MODELING: SAEED 12/12/191531 RPT#: [id number] DC DATE:12/12/19 STATUS: DIS IN [facility] [address] [place] [address] END OF REPORT
--- NOTE | 2019-12-12 16:55 | MORECARE ---
CASE MANAGEMENT DISCHARGE SUMMARY PATIENT: JEROME REHMAN UNIT: [id number] ADM DATE: 12/05/19 AGE: 49 : 70 SEX: F ROOM/BED: D.2220 AUTHOR: MAGED ROSA PHYSICIAN: REFERRING PHYSICIAN: RACHEL BAXTER MD DATE OF SERVICE: 12/12/19 Discharge Plan Patient Name: JEROME REHMAN Facility: [facility]:[place] : 1970 Planned Disposition: Home or Self Care Anticipated Discharge Date: Discharge Date: 12/12/2019 Expected LOS: Initial Reviewer: [email or web address] Initial Review Date: 12/05/2019 Generated: 12/12/19 5:54 pm DCP- Discharge Planning Updated by [email or web address]: Linn Colon on 12/12/19 2:[address] PATIENT DISCHARGED HOME, SHE HAS FAMILY WHO WILL HELP HER AND PER HER NURSE WAS INDEPENDENT WITH HER CARE Last DP export: 12/12/19 2:33 p Patient Name: JEROME REHMAN Page [id number] at 1655 All edits/amendments must be made on the electronic document DICTATION DATE: 12/12/191653 DATA SCIENCES DIRECTOR: SAEED 12/12/191653 RPT#: [id number] DC DATE:12/12/19 STATUS: DIS IN [facility] [address] [place] [id number] END OF REPORT
== END 2019-12-12 14:44 | disposition home or self-care (01) | DRG 341 ==
LOC: D.ER 13:24 → D.ICU 17:59 → D.ER 17:59 → D.MS 17:59 → D.ICU 12-06 17:37 → D.MS 12-09 22:27
PROVIDERS: Family Medicine; Surgery; ADMIT Family Medicine Adult Medicine; ATTEND Family Medicine Adult Medicine
PROC: 0DTJ0ZZ Resection of Appendix, Open Approach (ICD-10-PCS; principal; 2019-12-06 11:23)
PROC: 0DJ00ZZ Inspection of Upper Intestinal Tract, Open Approach (ICD-10-PCS; 2019-12-06 11:23)
DX: K56.50 Intestinal adhesions [bands], unspecified as to partial versus complete obstruction (principal); K65.9 Peritonitis, unspecified; F44.89 Other dissociative and conversion disorders; K43.2 Incisional hernia without obstruction or gangrene; I10 Essential (primary) hypertension; R00.0 Tachycardia, unspecified; F41.9 Anxiety disorder, unspecified; D72.829 Elevated white blood cell count, unspecified

== ENCOUNTER 2020-10-04 16:15 | Outpatient (CLI) | payer BC ==
[2019-12-06 13:15] VITALS: BMI 18.9
[~2020-10-04 16:15] MED LIST changes: +HYDROCODON-ACE1 EAC7 PO; +MIRALAX17 GM PO; +NICODERM CQ1 EAC1 TOPICAL; +VISTARIL25 MG PO; +ZOFRAN4 MG PO
== END 2020-10-04 23:59 | disposition home or self-care (01) ==
LOC: D.MAMMO 16:15
PROVIDERS: ATTEND Family Medicine Adult Medicine
DX: Z12.31 Encounter for screening mammogram for malignant neoplasm of breast (principal)

== ENCOUNTER 2020-11-16 14:15 | Outpatient (CLI) | payer BC ==
[2019-12-06 13:15] VITALS: BMI 18.9
== END 2020-11-16 23:59 | disposition home or self-care (01) ==
LOC: D.MAMMO 14:15
PROVIDERS: ATTEND Family Medicine Adult Medicine
DX: R92.8 Other abnormal and inconclusive findings on diagnostic imaging of breast (principal)